=== PATIENT | female | born 1970 | race Two or more races ===

== ENCOUNTER → 2017-10-22 | Outpatient (REF) ==
--- NOTE | 2017-10-22 11:26 | RADIOLOGY IMAGING REPORT ---
FACILITY: [facility] PATIENT NAME: Mayi Headley : 1970 MR: [id number] V: [id number] EXAM DATE: ORDERING PHYSICIAN: HERLINAD MONIQUE TECHNOLOGIST: Location: [facility] Patient: Mayi Headley : 1970 Visit/Account:[id number] Date of Sevice: 10/22/2017 THYROID Indication: Thyroid ultrasound evaluate for nodules. Comparison study: March 30, 2017 thyroid ultrasound. Procedure: There has been satisfactory grayscale ultrasonic evaluation of the thyroid gland. Findings: Right lobe: The right lobe measures 5.7 cm x 1.3 cm x 4 cm in its sagittal, transverse and AP dimensi ons. In the right lobe there are couple of tiny cysts but there is no dominant nodule. Left lobe: The left lobe measures 2.8 cm x 1.0 cm x 1.7 cm in its sagittal, transverse and AP dimensi ons. No dominant nodules seen. IMPRESSION: There are couple of small cysts in the thyroid gland but there is no dominant nodule. Report Dictated By: Omar Worthy MD at 10/22/2017 11:22 AM Report E-Signed By: Omar Worthy MD at 10/22/2017 11:23 AM WSN:[id number]
== END ==
LOC: US 10-13 01:14
PROVIDERS: ATTEND Family Medicine
DX: E04.2 Nontoxic multinodular goiter (principal)
CPT/HCPCS: 76536